=== PATIENT | male | born 1955 | race Caucasian/White ===

== ENCOUNTER 2017-12-25 09:56 | Day surgery (SDC) | payer MEDICAID ==
[~2017-12-25 09:56] MED LIST: ACET500C42 PO; ATROV IH; BRIM15DR2 OP; DORZ10DR8 OP; LATA2.5D2 OP; PRED10DR OP; TIMO15DR12 OP; tobramycin
[2017-12-25] MEDS ORDERED: HYALURONATE SODIUM 14 MG/ML 0.85ML SYRINGE IO ONE (11:17)
[2017-12-25] MEDS ORDERED: TROPICAMIDE 1% OPHTH DROPS 15ML LEFTEYE ONE (11:50)
[2017-12-25] MEDS ORDERED: PHENYLEPHRINE HCL 10% OPHTH DROPS 5ML LEFTEYE ONE (11:50)
[2017-12-25] MEDS ORDERED: CYCLOPENTOLATE HCL 1% OPHTH DROPS 2ML LEFTEYE ONE (11:50)
[2017-12-25] MEDS ORDERED: SODIUM CHLORIDE 0.9% 1,000 ML IV SCH (12:00)
[2017-12-25 12:04] LABS: BASOPHILS % 1.4 % (0.0-2.0); EOSINOPHILS % 6.9 % (0.0-5.0); HEMATOCRIT. 44.5 % (42.0-52.0); LYMPHOCYTES % 27.4 % (20.0-50.0); MEAN CORPUSCULAR HEMOGLOBIN 30.7 pg (28.0-32.0); MEAN CORPUSCULAR VOLUME 91.3 fL (80.0-94.0); MEAN PLATELET VOLUME 8.4 fl (7.4-10.4); MONOCYTES % 6.7 % (2.0-8.0); NEUTROPHILS % 57.6 % (40.0-76.0); PLATELET 309 x1000/uL (130-400); RED BLOOD CELL COUNT 4.88 mill/uL (4.7-6.1); RED CELL DISTRIBUTION WIDTH 13.4 % (11.6-14.6)
[2017-12-25] MEDS ORDERED: TRYPAN BLUE 0.5 ML DISP.SYRIN IO ONE (12:29)
[2017-12-25] MEDS ORDERED: METF500T6 PO (14:38)
[2017-12-25] MEDS ORDERED: NEO/POLYMYX B SULF/DEXAMETH OPHTH OINT 3.5GM ONE (15:18)
[2017-12-25] MEDS ORDERED: CIPROFLOXACIN 0.3% OPHTH SOLN 2.5ML ONE (15:18)
[2017-12-25] MEDS ORDERED: LIDOCAINE HCL/PF 2% 20 MG/ML 10ML VIAL ONE (15:18)
[2017-12-25] MEDS ORDERED: PREDNISOLONE ACETATE 1% OPHTH DROPS 1ML ONE (15:18)
[2017-12-25] MEDS ORDERED: LIDOCAINE HCL 2%/EPINEPHRINE 1:100,000 20 ML VIAL INFIL ONE (15:18)
[2017-12-25] MEDS ORDERED: TETRACAINE 0.5% OPHTH DROPS 4ML ONE (15:18)
[2017-12-25] MEDS ORDERED: BALANCED SALT IRRIG SOLN 15ML ONE (15:18)
[2017-12-25] MEDS ORDERED: BUPIVACAINE HCL/PF 0.75% (7.5MG/ML) 10ML ONE (15:18)
== END 2017-12-25 15:30 | disposition home or self-care (01) ==
LOC: EDSTATUS 10:51 → OR 11:23
PROVIDERS: ATTEND Ophthalmology
DX: H25.22 Age-related cataract, morgagnian type, left eye (principal); H40.89 Other specified glaucoma; I10 Essential (primary) hypertension; E11.319 Type 2 diabetes mellitus with unspecified diabetic retinopathy without macular edema; E66.3 Overweight; Z79.899 Other long term (current) drug therapy; Z79.01 Long term (current) use of anticoagulants; Z98.890 Other specified postprocedural states
CPT/HCPCS: 36415; 66170; 66984; 80048; 82962; 85025; J3490; J7030; Q9957; V2632

== ENCOUNTER 2018-06-16 08:35 | Day surgery (SDC) | payer MEDICAID ==
[~2018-06-16] VITALS: Ht 170.2 cm; Wt 77.0 kg
[~2018-06-16 08:35] MED LIST changes: +METF-414 PO
[2018-06-16] MEDS ORDERED: ACETAZOLAMIDE SODIUM 500MG/VIAL IV ONE (09:00)
[2018-06-16 10:14] LABS: BASOPHILS % 0.8 % (0.0-2.0); EOSINOPHILS % 5.6 % (0.0-5.0); HEMATOCRIT. 46.6 % (42.0-52.0); HEMOGLOBIN. 15.4 g/dL (14.0-18.0); MEAN CORPUSCULAR HEMOGLOBIN 31.3 pg (28.0-32.0); MEAN CORPUSCULAR VOLUME 94.6 fL (80.0-94.0); MEAN PLATELET VOLUME 8.3 fl (7.4-10.4); NEUTROPHILS % 55.6 % (40.0-76.0); PLATELET 345 x1000/uL (130-400); RED BLOOD CELL COUNT 4.93 mill/uL (4.7-6.1); RED CELL DISTRIBUTION WIDTH 14.2 % (11.6-14.6)
[2018-06-16 10:20] LABS: PARTIAL THROMBOPLASTIN TIME 27.5 sec (23.4-31.0)
[2018-06-16] MEDS ORDERED: LORAZEPAM 2MG/ML CPJ IV PRN (10:30)
[2018-06-16] MEDS ORDERED: ACETAMINOPHEN 325MG TABLET PO PRN (10:30)
[2018-06-16] MEDS ORDERED: ONDANSETRON HCL 4MG/2ML INJ IV PRN (10:30)
[2018-06-16] MEDS ORDERED: DOCUSATE SODIUM 100MG CAPSULE PO PRN (10:30)
[2018-06-16] MEDS ORDERED: MAGNESIUM/ALUMINUM HYDROXIDE/SIMETHICONE 30ML UDC PO PRN (10:30)
[2018-06-16] MEDS ORDERED: DIPHENHYDRAMINE 50MG/ML VIAL IV PRN (10:30)
[2018-06-16] MEDS ORDERED: HYDROMORPHONE HCL/PF 2MG/ML CPJ IV PRN ×2 (10:30→12:30)
[2018-06-16] MEDS ORDERED: HYDROCODONE/ACETAMINOPHEN 5/325MG TABLET PO PRN (10:30)
[2018-06-16] MEDS ORDERED: CLONIDINE 0.1MG TABLET PO PRN (10:30)
[2018-06-16] MEDS ORDERED: IPRATROPIUM/ALBUTEROL 0.5-3(2.5)MG/3ML NEB INH PRN (10:30)
[2018-06-16] MEDS ORDERED: GUAIFENESIN 200MG/10ML SUGAR FREE UDC PO PRN (10:30)
[2018-06-16] MEDS ORDERED: NA PHOS,M-B/NA PHOS,DI-BA ENEMA 118ML PR PRN (10:30)
[2018-06-16 10:39] LABS: CHLORIDE 114 mEq/L (98-107)
[2018-06-16] MEDS ORDERED: DEXAMETHASONE 4MG/ML 1ML VIAL ONE (10:48)
[2018-06-16] MEDS ORDERED: TRIAMCINOLONE ACETONIDE 40MG/ML 1ML VIAL ONE (10:48)
[2018-06-16] MEDS ORDERED: MITOMYCIN 0.2 MG KIT OP ONE (11:00)
[2018-06-16] MEDS ORDERED: PROPOFOL 200MG/20ML VIAL IV ONE (11:12)
[2018-06-16] MEDS ORDERED: LIDOCAINE HCL/PF 1% 10 MG/ML 5ML VIAL ONE (11:13)
[2018-06-16 11:36] LABS: CLARITY URINE CLEAR (CLEAR); COLOR URINE YELLOW (YELLOW); KETONES URINE NEGATIVE (NEGATIVE); LEUKOCYTE ESTERASE URINE NEGATIVE (NEGATIVE); NITRITE URINE NEGATIVE (NEGATIVE); OCCULT BLOOD URINE NEGATIVE (NEGATIVE); PROTEIN URINE NEGATIVE (NEGATIVE); SPECIFIC GRAVITY URINE 1.014 (1.005-1.030); UROBILINOGEN URINE 0.2 E.U./dL (0.2-1.0)
[2018-06-16] MEDS ORDERED: MIDAZOLAM HCL 2 MG/2 ML VIAL ONE (11:42)
[2018-06-16] MEDS ORDERED: PREDNISOLONE ACETATE 1% OPHTH DROPS 1ML ONE (12:16)
[2018-06-16] MEDS ORDERED: BALANCED SALT IRRIG SOLN 15ML ONE (12:16)
[2018-06-16] MEDS ORDERED: LIDOCAINE HCL/PF 2% 20 MG/ML 10ML VIAL ONE (12:16)
[2018-06-16] MEDS ORDERED: LIDOCAINE HCL 2%/EPINEPHRINE 1:100,000 20 ML VIAL INFIL ONE (12:16)
[2018-06-16] MEDS ORDERED: BUPIVACAINE HCL/PF 0.75% (7.5MG/ML) 10ML ONE (12:16)
[2018-06-16] MEDS ORDERED: NEO/POLYMYX B SULF/DEXAMETH OPHTH OINT 3.5GM ONE (12:16)
[2018-06-16 12:38] VITALS: BP 162/90
== END 2018-06-16 13:00 | disposition home or self-care (01) ==
LOC: ENRESERV 09:34 → ER 10:03 → UNDOADMIN 10:06 → 6EST 10:06 → OR 11:00 → UNDODISIN 13:05
PROVIDERS: ATTEND Ophthalmology
DX: H40.212 Acute angle-closure glaucoma, left eye (principal); E11.319 Type 2 diabetes mellitus with unspecified diabetic retinopathy without macular edema; I10 Essential (primary) hypertension; Z79.84 Long term (current) use of oral hypoglycemic drugs; Z79.899 Other long term (current) drug therapy
CPT/HCPCS: 36415; 66172; 71045; 80053; 81003; 82962; 85025; 85610; 85730; 93005; 96374; 96375; 99285; J1120; J1170; J2250; J3490; J9280; J1100; J2704; J3301

== ENCOUNTER 2020-05-15 06:10 | Day surgery (SDC) | payer MEDICAID ==
[~2020-05-15] VITALS: Ht 170.2 cm; Wt 86.0 kg
[~2020-05-15 06:10] MED LIST changes: -ACET500C42 PO; +ACET500C47 PO
[2020-05-15] MEDS ORDERED: ACETAMINOPHEN 325MG TABLET PO ONE (06:45)
[2020-05-15 07:10] LABS: BASOPHILS % 1.3 % (0.0-2.0); EOSINOPHILS % 4.5 % (0.0-5.0); HEMATOCRIT. 40.7 % (42.0-52.0); HEMOGLOBIN. 13.4 g/dL (14.0-18.0); LYMPHOCYTES % 26.1 % (20.0-50.0); MEAN CORPUSCULAR HEMOGLOBIN 30.7 pg (28.0-32.0); MEAN CORPUSCULAR VOLUME 92.8 fL (80.0-94.0); MEAN PLATELET VOLUME 7.8 fl (7.4-10.4); MONOCYTES % 8.2 % (2.0-8.0); NEUTROPHILS % 59.9 % (40.0-76.0); PLATELET 303 x1000/uL (130-400); RED BLOOD CELL COUNT 4.38 mill/uL (4.7-6.1); RED CELL DISTRIBUTION WIDTH 14.9 % (11.6-14.6)
[2020-05-15 07:21] LABS: CHLORIDE 117 mEq/L (98-107)
[2020-05-15 07:41] LABS: PROTHROMBIN TIME 10.3 sec (9.6-11.0)
[2020-05-15 07:58] VITALS: BP 158/80
[2020-05-15] MEDS ORDERED: LIDOCAINE HCL/PF 2% 20 MG/ML 10ML VIAL ONE (09:00)
[2020-05-15] MEDS ORDERED: CIPROFLOXACIN 0.3% OPHTH SOLN 2.5ML ONE (09:00)
[2020-05-15] MEDS ORDERED: PREDNISOLONE ACETATE 1% OPHTH DROPS 5ML ONE (09:00)
[2020-05-15] MEDS ORDERED: NEO/POLYMYX B SULF/DEXAMETH OPHTH OINT 3.5GM ONE (09:00)
[2020-05-15] MEDS ORDERED: BALANCED SALT IRRIG SOLN 15ML ONE (09:00)
[2020-05-15] MEDS ORDERED: PROPOFOL 200MG/20ML VIAL IV ONE (09:46)
[2020-05-15] MEDS ORDERED: ONDANSETRON HCL 4MG/2ML INJ ONE (09:53)
[2020-05-15] MEDS ORDERED: HYDROMORPHONE HCL/PF 2MG/ML (OR) ONE (09:53)
[2020-05-15] MEDS ORDERED: DEXAMETHASONE 4MG/ML 1ML VIAL ONE (09:53)
[2020-05-15] MEDS ORDERED: CEFAZOLIN SODIUM 1000MG/VIAL ONE (09:55)
[2020-05-15] MEDS ORDERED: HYDROMORPHONE HCL/PF 2MG/ML CPJ IV PRN (12:00)
[2020-05-15] MEDS ORDERED: MEPERIDINE HCL/PF 25MG/ML CPJ IV PRN (12:00)
[2020-05-15] MEDS ORDERED: LABETALOL 5MG/ML SYR 20 MG/4 ML SYRINGE IV PRN (12:00)
[2020-05-15] MEDS ORDERED: ONDANSETRON HCL 4MG/2ML INJ IV PRN (12:00)
== END 2020-05-15 14:30 | disposition home or self-care (01) ==
LOC: ER 06:36 → OR 09:34 → CANBEDREQ 19:55
PROVIDERS: ATTEND Ophthalmology
DX: E11.319 Type 2 diabetes mellitus with unspecified diabetic retinopathy without macular edema (principal); H40.10X0 Unspecified open-angle glaucoma, stage unspecified; H53.8 Other visual disturbances; I10 Essential (primary) hypertension; Z79.84 Long term (current) use of oral hypoglycemic drugs; Z79.899 Other long term (current) drug therapy; Z98.890 Other specified postprocedural states; Z83.3 Family history of diabetes mellitus; Z20.828 Contact with and (suspected) exposure to other viral communicable diseases
CPT/HCPCS: 36415; 66180; 71045; 80053; 85025; 85610; 87426; 93005; 99285; J0690; J1100; J1170; J2405; J2704; J3490; C1783